=== PATIENT | male | born 1965 | race Caucasian/White ===

== ENCOUNTER → 2019-02-03 | Outpatient (CLI) | payer OTHER | LOC: M LRY 09:50 | PROVIDERS: ATTEND Nurse Practitioner Family | DX: R06.2 Wheezing (principal); Z53.9 Procedure and treatment not carried out, unspecified reason ==

== ENCOUNTER → 2019-02-03 | Outpatient (CLI) | payer OTHER ==
--- NOTE | 2019-02-03 11:46 | REP ---
CHEST, TWO VIEWS: There is no evidence of acute infiltrate. No pleural effusion is seen. The heart is normal in size. The mediastinal silhouette is unremarkable. The visualized osseous structures are intact. IMPRESSION: No acute pulmonary disease. Electronically Signed by Merlin Osman MD 02/04/2019 09:00 A
== END ==
LOC: M LRY 10:01
PROVIDERS: ATTEND Nurse Practitioner Family
DX: R06.2 Wheezing (principal); J39.2 Other diseases of pharynx
CPT/HCPCS: 71046; 87880; 94640; G0463

== ENCOUNTER → 2021-05-29 | Outpatient (REF) | payer OTHER | LOC: M LAB REF 16:25 | PROVIDERS: ATTEND Otolaryngology | DX: K09.8 Other cysts of oral region, not elsewhere classified (principal) ==

== ENCOUNTER → 2021-07-02 | Outpatient (CLI) | payer OTHER | LOC: M PLARAD 08:45 | PROVIDERS: ATTEND Otolaryngology | DX: C00.8 Malignant neoplasm of overlapping sites of lip (principal); M51.24 Other intervertebral disc displacement, thoracic region | CPT/HCPCS: 78815; A9552 ==